=== PATIENT | female | born 1995 | race Caucasian/White ===

== ENCOUNTER → 2018-07-09 07:36 | Outpatient (CLI) | payer MEDICAID ==
[2016-01-10 13:41] VITALS: BMI 55.0
[~2018-07-09 07:36] MED LIST: ALDACTAZIDE 25/1 TAB PO; ATIVAN1 MG PO
== END | disposition home or self-care (01) ==
LOC: D.US 07:36
PROVIDERS: ATTEND Nurse Practitioner
DX: R10.2 Pelvic and perineal pain (principal)

== ENCOUNTER 2019-07-28 16:10 | Emergency (ER) | payer MEDICAID ==
[~2019-07-28] VITALS: Ht 165.1 cm; Wt 152.7 kg
[2019-07-28 16:26] VITALS: Ht 165.1 cm; Wt 152.7 kg
[2019-07-28] MEDS ORDERED: CYMBALTA20 MG PO (16:30)
[2019-07-28] MEDS ORDERED: VISTARIL25 MG PO (16:30)
[2019-07-28] MEDS ORDERED: ABILIFY2 MG PO (16:30)
[2019-07-28] MEDS ORDERED: MINIPRESS2 MG PO (16:30)
[2019-07-28] MEDS ORDERED: ZANAFLEX4 MG PO (16:31)
[2019-07-28 16:55] LABS: BASOPHILS 0.3 % (0-2); EOSINOPHILS 2.3 % (0-7); HEMATOCRIT 39.3 % (36.0-48.0); HEMOGLOBIN 12.6 g/dL (12-16); IMMATURE GRANULOCYTES 0.4 % (0-5); MCHC 32.1 g/dL (31.0-37.0); MCV 84.3 fL (80.0-100.0); MEAN PLATELET VOLUME 10.6 fL (7.4-10.4); MONOCYTES 6.4 % (2-11); NEUTROPHILS 64.6 % (40-80); PLATELET COUNT 314 10x3/uL (130-400); RBC 4.66 10x6/uL (4.00-5.40); WBC 11.5 10x3/uL (4.8-10.8)
[2019-07-28 16:59] LABS: BILIRUBIN NEGATIVE (NEGATIVE); GLUCOSE NEGATIVE (NEGATIVE); KETONE NEGATIVE (NEGATIVE); NITRITE NEGATIVE (NEGATIVE); UROBILINOGEN NORMAL (NORMAL)
[2019-07-28 17:01] LABS: BACTERIA FEW /hpf (NEGATIVE); CALC OSMOLALITY 274 mosm/kg (275-300); CALCIUM 8.8 mg/dL (8.5-10.1); CARBON DIOXIDE 24.9 mmol/L (21.0-32.0); CHLORIDE - SERUM 106 mmol/L (98-107); CREATININE - SERUM 0.8 mg/dL (0.6-1.3); EPITHELIAL CELLS 0-5 /hpf (0-5); GLUCOSE 95 mg/dL (74-106); POTASSIUM - SERUM 3.6 mmol/L (3.5-5.1); RED CELLS - URINE 25-50 /hpf (0-5); SODIUM 138 mmol/L (136-145); UREA NITROGEN 11 mg/dL (7-18); WHITE CELLS - URINE 0-5 /hpf (NEGATIVE); eGFR NON AFRICAN AMERICAN > 90 mL/min (90-120)
[2019-07-28 17:07] LABS: ALBUMIN 3.6 g/dL (3.4-5.0); ALKALINE PHOSPHATASE 78 U/L (30-120); ALT (SGPT) 24 U/L (10-68); BILIRUBIN - TOTAL 0.35 mg/dL (0.2-1.3); PROTEIN - SERUM 7.6 g/dL (6.4-8.2)
[2019-07-28 17:11] LABS: HCG SERUM NEGATIVE (NEGATIVE)
== END 2019-07-28 19:55 | disposition home or self-care (01) ==
LOC: D.ER 16:10
PROVIDERS: Family Medicine
DX: N93.9 Abnormal uterine and vaginal bleeding, unspecified (principal); R10.2 Pelvic and perineal pain; R10.9 Unspecified abdominal pain; Z97.5 Presence of (intrauterine) contraceptive device